=== PATIENT | male | born 1930 | race Caucasian/White ===

== ENCOUNTER 2017-01-28 15:59 | Inpatient (IN) | payer MEDICARE, BC ==
--- NOTE | ~2017-01-28 | CR72 ---
[facility] A Service of [facility] RADIOLOGY TEXT RESULTS PATIENT: TOMY PENA LOCATION: [facility] : 31 UNIT #: [id number] AGE: [address]: Matilde Sarkar MD SEX: M ORDER DR: [id number] [facility] [address] [place], [place] [address] [id number] I MR#: [id number] Acc #: [id number] NAME: TOMY PENA : 1930 SEX: M STUDY DATE/TIME: 01/31/2017 10:42 UNIT: [facility] ROOM: [facility] STUDY DESCRIPTION: CR Chest Single View Portable Attending Physician: Matilde Sarkar M.D. Ordering Physician: Ricco Barrow M.D. Primary Care Physician: Joby Sharma M.D. MEDICAL IMAGING REPORT This report is preliminary unless electronic signature is present EXAM Portable chest x-ray. HISTORY Fever, chills, short of air. Over 1 week. TECHNIQUE AP radiograph of the chest presented. COMPARISON 01/28/2017 FINDINGS Status post median sternotomy and CABG. Stable borderline cardiac enlargement. Descending thoracic aorta is moderately tortuous, unchanged. The lungs are well inflated. Slight elevation of the right hemidiaphragm is stable. Patchy densities in the right mid lung zone and right infrahilar region persist and may involve components of pneumonia and atelectasis. There are new patchy densities at the left lung base concerning for new focus of pneumonia given patient's symptoms. No dense airspace consolidation. No pleural effusion or pneumothorax. No suspicious nodule. Follow up to complete resolution of radiographic findings in lungs recommended. Healed granulomatous disease, unchanged. Dictated by... Brian Washburn M.D. THIS IS AN ELECTRONICALLY VERIFIED REPORT Brian Washburn M.D. at 02/01/2017 7:54 AM ROBERT/kirstin [facility] A Service of [facility] RADIOLOGY TEXT RESULTS PATIENT: TOMY PENA [facility] [id number] : [facility] UNIT #: [id number] AGE: [address]: Matilde Sarkar MD SEX: M ORDER DR: TD: 01/31/2017 12:51 JOB #: [id number] MEDICAL IMAGING REPORT COPY
--- NOTE | ~2017-01-28 | DS ---
Unit #: [id number] #: [id number] Patient: TOMY PENA [id number] [facility] [address]. [place], [place] [address] [id number] I MR#: [id number] NAME: TOMY PENA ROOM: 218 Age: 86 Sex: M Admission Date: 01/28/2017 : 1930 Discharge Date: 01/31/2017 Attending Physician: Matilde Sarkar M.D. Primary Care Physician: Joby Sharma M.D. DISCHARGE SUMMARY DIAGNOSES ON ADMISSION 1. Fever. 2. Right middle lobe pneumonia. DIAGNOSES ON DISCHARGE 1. Right lower lobe community-acquired pneumonia. 2. Chronic obstructive pulmonary disease. 3. Coronary artery disease, status post coronary artery bypass graft. 4. Valvular disease with aortic stenosis. 5. Hyperlipidemia. 6. Degenerative joint disease. CONSULTATION Dr. Barrow - Pulmonary. LABS AND PROCEDURES DONE The patient's CT scan of abdomen and pelvis revealed no acute findings in abdomen and pelvis. There was a moderate patchy infiltrate in posterior right lower lobe. Sputum culture and sensitivities revealed normal respiratory danae. Influenzae A and B were negative. The patient's creatinine is 0.8, sodium 139, potassium is 4.2. WBC is 10.1, hemoglobin is 11.0, platelet count is 203. HOSPITAL COURSE 86-year-old patient presented to [facility] with shortness of air. Details are as per admission H and P. Right lower lobe pneumonia: The patient was treated with IV antibiotics. The patient has responded well and is feeling good. The patient's chronic obstructive pulmonary disease remains stable and he was treated with Duo-Neb mini neb treatments. Today, patient is comfortable, not in any acute distress. Wants to go home. On physical examination, VITAL SIGNS reveal a temperature of 98.5, pulse is 70 per minute, respiratory rate is 18 per minute, blood pressure is 143/63. HEENT examination revealed no conjunctival congestion. Sclerae is not icteric. NECK is supple. Trachea is central. RESPIRATORY examination revealed breath sounds equal bilaterally. No wheezes or Unit #: [id number] #: [id number] Patient: TOMY PENA crackles. HEART is regular rate and rhythm. S1, S2. ABDOMEN is soft, nontender. Bowel sounds are present in all four quadrants. NEUROLOGICALLY, strength is 5 out of 5 bilaterally. Skin is warm and dry. RECOMMENDATIONS ON DISCHARGE 1. Condition is stable. 2. Activity as tolerated. MEDICATIONS 1. Albuterol mini neb treatment, two puffs q.4 hours p.r.n. 2. Symbicort inhalation, 160/4.5 inhalations b.i.d. 3. Tylenol 325 mg p.o. q.6 hours p.r.n. 4. Spiriva, one inhalation daily. 5. Claritin 10 mg p.o. daily. 6. Norvasc 10 mg p.o. daily. 7. Toprol XL 12.5 mg p.o. daily. 8. Eyedrops. 9. Pravachol 40 mg p.o. q. h.s. 10. Lisinopril 10 mg p.o. daily. 11. Enteric coated aspirin 81 mg p.o. daily. 12. Multivitamin, one tablet p.o. daily. 13. Vitamin B12 injection, 1 mg intramuscularly once a month. 14. Levaquin 500 mg p.o. daily for four days. FOLLOWUP The patient is advised to follow up with primary care physician in one week, have a CBC and BMP done, and follow up with Dr. Barrow as recommended. The plan was discussed in detail with patient who showed complete understanding. Dictated by... Yosef Cox/twin TD: 01/31/2017 12:06 JOB #: [id number] DISCHARGE SUMMARY X Matilde Sarkar MD X DISCHARGE SUMMARY
--- NOTE | ~2017-01-28 | CR63 ---
[facility] A Service of [facility] & [facility] RADIOLOGY TEXT RESULTS PATIENT: TOMY PENA LOCATION: [facility] 218-01 : 31 UNIT #: [id number] AGE: [address]: Matilde Sarkar MD SEX: M ORDER DR: [id number] [facility] [address] [place], [place] [address] [id number] I MR#: [id number] Acc #: [id number] NAME: TOMY PENA. : 1930 SEX: M STUDY DATE/TIME: 01/28/2017 13:38 UNIT: [facility] ROOM: 218 STUDY DESCRIPTION: CR Chest 2 View Attending Physician: Matilde Sarkar M.D. Ordering Physician: Brittany Schultz M.D. Primary Care Physician: Joby Sharma M.D. MEDICAL IMAGING REPORT This report is preliminary unless electronic signature is present EXAM PA and lateral chest DATE 01/28/2017 at 13:38 HISTORY Fever, chills and cough for 5 days. COMPARISON PA and lateral chest radiograph 08/07/2016. CT chest 10/23/2016. PA and lateral chest 05/09/2014. FINDINGS The mid to upper lung zone on the lateral view is obscured by the patient's arm, which is not well elevated. Airspace disease in the infrahilar right lower lobe favored to represent dense band-like atelectasis is not thought to be significantly changed since previous exam. There may be faint reticular infiltrate in the perihilar right midlung. Left lung remains clear. Minimal linear subsegmental atelectasis or scarring is present in the left lower lobe. Stable mild cardiac enlargement. CABG changes. Benign calcified granuloma in the left lower lobe. IMPRESSION 1. Suspected ill-defined infiltrate in the perihilar right midlung. More dense band-like opacity in the infrahilar right lower lobe is not thought to be significantly changed from prior, favored to represent band-like atelectasis or scarring. Minimal linear scarring or atelectasis remains within the left lower lobe. 2. Stable borderline cardiac enlargement with signs of prior CABG. [facility] A Service of [facility] & [facility] RADIOLOGY TEXT RESULTS PATIENT: TOMY PENA LOCATION: [facility] 218-01 : 31 UNIT #: [id number] AGE: [address]: Matilde Sarkar MD SEX: M ORDER DR: Dictated by... Maribeth Jara M.D. THIS IS AN ELECTRONICALLY VERIFIED REPORT Maribeth Jara M.D. at 01/28/2017 10:50 PM [facility]/elza TD: 01/28/2017 21:37 JOB #: [id number] MEDICAL IMAGING REPORT COPY
--- NOTE | ~2017-01-28 | HP ---
Unit #: [id number] #: [id number] Patient: TOMY PENA [id number] [facility] [address] [place], [place] [address] [id number] I MR#: [id number] NAME: TOMY PENA. ROOM: 218 Age: 86 Sex: M Admission Date: 01/28/2017 : 1930 Attending Physician: Matilde Sarkar M.D. Primary Care Physician: Joby Sharma M.D. HISTORY AND PHYSICAL DIAGNOSES ON ADMISSION Right pneumonia. HISTORY OF PRESENT ILLNESS An 86-year-old male presented to [facility] with fever. Details are as per admission H and P. As per patient he was in his usual state of health when yesterday evening he started to develop fever. Patient's states that [facility] and then afterward he developed fever with productive cough. She gave him Tylenol. Fever initially improved but again came back. As per the temperature was 101 degrees. Patient also had cough with yellowish green sputum. Patient complained of weakness. As patient's symptoms did not improve today she decided to bring him to the hospital. On questioning the patient states that before yesterday, on Saturday, he had some weakness and was more sleepy but he denies any shortness of air or chest pain. Patient stated that he had cataract surgery done last week and he is not able to see from his right eye. He has a followup appointment with Dr. Mcadams on this Saturday. Patient denies any rectal bleeding or blood in urine. There is no history of sore throat, sinus congestion or holland rash. Patient denies recent weight loss or loss of appetite. Rest of the review of systems was negative. PAST MEDICAL HISTORY 1. COPD. 2. Hypertension. 3. Coronary artery disease, status post CABG x3. 4. Valvular heart disease with aortic stenosis. 5. Degenerative joint disease. 6. Diverticulosis. 7. Back surgery in 1977. 8. Knee surgery. 9. History of spontaneous pneumothorax requiring a chest tube. 10. Coronary artery bypass grafting x3. FAMILY HISTORY Family history is positive for coronary artery disease. SOCIAL HISTORY Patient is . He quit smoking 30 years ago, denies drinking or use of illicit drugs. ALLERGIES Unit #: [id number] #: [id number] Patient: TOMY PENA. HOME MEDICATION Patient currently does not have a list of his home medications with him but in July 2016 he was discharged on Protonix, Norvasc, Lopressor, Pravachol, lisinopril, aspirin, loratadine but latest med list is not with patent right now. PHYSICAL EXAMINATION GENERAL: Patient is lying in bed. He is complaining of weakness. VITAL SIGNS: Reveal a temperature of 98.5, pulse is 72 per minute, respiratory rate is 18 per minutes, blood pressure is 148/80, pulse ox was 94% on room air. HEENT: Examination revealed no conjunctival congestion. Sclerae are nonicteric. NECK: Neck is supple. Trachea is central. RESPIRATORY: Examination revealed decreased breath sounds bilaterally. There are right-sided crackles present. HEART: Heart is regular rate and rhythm, S1, S2. ABDOMEN: Abdomen is soft, nontender. Bowel sounds are present. EXTREMITIES: Reveal trace pedal edema. PSYCHIATRIC: The patient is alert to person place and time. NEUROLOGIC: Strength is 4+ bilaterally. SKIN: Warm and dry. DIAGNOSTIC STUDIES LABORATORY: The patient's CBC revealed a WBC of 19.3, hemoglobin is 12.3, platelet count is 224. BMP is currently pending. Influenza A and B screen was negative. IMAGING: Chest x-ray revealed right middle lobe infiltrate. ASSESSMENT AND PLAN An 86-year-old male presented to [facility] with fever. Details are as per admission H and P. 1. Right middle lobe pneumonia: Patient is already receiving Levaquin therefore we will continue patient on our Levaquin treatment. 2. Chronic obstructive pulmonary disease: I will add DuoNeb mini-neb treatment. The patient is not actively wheezing and I will hold on Solu-Medrol for now. 3. History of coronary artery disease, status post coronary artery bypass graft: Will continue (1) . 4. Hypertension: Will continue home medications. 5. Hyperlipidemia: Will continue home medication. 6. Gastroesophageal reflux disease: Will continue Protonix. The plan was discussed in detail with patient and and they showed complete understanding. Dictated by Yosef Cox Unit #: [id number] #: [id number] Patient: TOMY PENA TD: 01/28/2017 22:21 JOB #: [id number] HISTORY AND PHYSICAL X Matilde Sarkar MD X HISTORY AND PHYSICAL
--- NOTE | ~2017-01-28 | CO ---
Unit #: [id number] #: [id number] Patient: TOMY PENA [id number] [address] [place], [place] [address] [id number] I MR#: [id number] NAME: TOMY PENA ROOM: 218 Age: 86 Sex: M Admission Date: 01/28/2017 : 1930 Attending Physician: Matilde Sarkar M.D. Primary Care Physician: Joby Sharma M.D. Consultation Date: 01/29/2017 CONSULTATION REPORT HISTORY OF PRESENT ILLNESS An 86-year-old white male with a history of some COPD, hypertension, coronary artery disease, valvular heart disease with aortic stenosis, who presents after awakening Saturday morning with fever, weakness, and cough. He gradually worsened and presented to the emergency room. There he was noted to have a right mid lung field infiltrate. CT scan of the abdomen and pelvis was done also which revealed a right lower lobe infiltrate and some segmental atelectasis in left lung base. No significant abdominal abnormality was identified. He has been admitted. We were asked to see. I see him in my pulmonary office, he came in for evaluation of his COPD and see what medicines he need to be on. He has outpatient pulmonary function test scheduled spirometry in the office, though did show no obstruction. PAST MEDICAL HISTORY Significant for COPD, hypertension, coronary artery disease status post CABG, valvular heart disease with aortic stenosis, DJD, diverticulosis. He has had back surgery, knee surgery, history of spontaneous pneumothorax with chest tube, and coronary bypass grafting x3. ALLERGIES He has allergies to Keflex. HOME MEDICATIONS Listed include lisinopril, cyanocobalamin, Claritin, pravastatin, Tylenol, Norvasc, aspirin, Nasalide, multivitamins, Toprol-XL, [place], Symbicort, Spiriva, ProAir, artificial tears, and Timoptic. SOCIAL HISTORY . Quit smoking 30 years ago. Denies alcohol or drug abuse. FAMILY HISTORY Positive for coronary artery disease. REVIEW OF SYSTEMS CONSTITUTIONAL: Has had fever and chills. HEENT: No rhinorrhea or nasal congestion. PULMONARY: As noted. CARDIAC: No chest pain or palpitations. GI: Has had some nausea. No vomiting. : No hematuria or dysuria. ENDOCRINE: No polyuria or polydipsia. HEMATOLOGIC: No easy bruising or bleeding. SKIN: No rash. Unit #: [id number] #: [id number] Patient: TOMY PENA NEURO: No unilateral weakness or numbness. Other 10-point system negative. PHYSICAL EXAMINATION GENERAL: White male, in no distress, sitting up in chair. VITAL SIGNS: Blood pressure is 103/52, pulse is 70, respiratory rate is 17, afebrile, O2 saturation 94%. HEENT: Normocephalic and atraumatic. Pupils are equal, round, reactive. He is status post cataract surgery in right and left. Oral cavity, Mallampati III. Mucous membranes are moist. NECK: Supple. Trachea midline. No cervical or supraclavicular lymphadenopathy. LUNGS: Reveal some rales in the right base. CARDIAC: Regular rate and rhythm. Could not appreciate murmur, rub, or gallop. ABDOMEN: Nontender. Bowel sounds present. No hepatosplenomegaly. EXTREMITIES: Without clubbing, cyanosis, or edema. NEUROLOGIC: Awake, alert, moves all extremities symmetrically. SKIN: Warm and dry. Psychiatric: Affect calm. DIAGNOSTIC STUDIES IMAGING STUDIES: Chest x-ray and CT scan as noted, personally reviewed. LABORATORY RESULTS: BMP reviewed glucose 179. Lactic acid 1.1. Procalcitonin not done. White count 19,300 on admission, hematocrit 38.1, and platelet count normal. IMPRESSION 1. Right lower lobe community-acquired pneumonia. 2. Chronic obstructive pulmonary disease. 3. Hypertension. 4. Coronary artery disease. 5. Valvular heart disease with aortic stenosis. PLAN Broad-spectrum antibiotics for community-acquired pneumonia. We will rule out possibility of aspiration. With speech evaluation and possibly video swallow and continue pulmonary inhalers. He is on O2 to maintain adequate saturation. He is scheduled to have outpatient pulmonary function test to see if he does have significant COPD or not. We will make recommendations as to medications at that point. Dictated by... Ricco Barrow M.D. DALJIT/odette TD: 01/29/2017 22:31 JOB #: [id number] Unit #: [id number] #: [id number] Patient: TOMY PENA CONSULTATION REPORT X Ricco Barrow MD CONSULTATION REPORT
--- NOTE | ~2017-01-28 | CT2 ---
[facility] A Service of [facility] RADIOLOGY TEXT RESULTS PATIENT: TOMY PENA LOCATION: [facility] 218 : 31 UNIT #: [id number] AGE: [address]: Matilde Sarkar MD SEX: M ORDER DR: [id number] [facility] [address] [place], [place] [address] [id number] I MR#: [id number] Acc #: [id number] NAME: TOMY PENA. : 1930 SEX: M STUDY DATE/TIME: 01/28/2017 17:43 UNIT: [facility] ROOM: 218 STUDY DESCRIPTION: CT Abd and Pelv W Cont Attending Physician: Matilde Sarkar M.D. Ordering Physician: Arpita Arzate M.D. Primary Care Physician: Joby Sharma M.D. MEDICAL IMAGING REPORT This report is preliminary unless electronic signature is present EXAM CT abdomen and pelvis with IV contrast HISTORY Cough, fever, chills and diffuse abdomen pain today. TECHNIQUE This CT examination was performed with one or more of the following radiation dose reduction techniques: automatic exposure control, adjustment of mA and/or kV according to patient size, and iterative reconstruction. FINDINGS CT abdomen and pelvis was performed with IV contrast. CT ABDOMEN: Evaluation of the lung bases demonstrates moderate patchy infiltrate in the posterior right lower lobe, which is nonspecific but could be due to pneumonia in the appropriate clinical context. There is probably additional atelectasis in the posterior right lower lobe and there is mild subsegmental atelectasis in the posterior left lower lobe and in the inferior right middle lobe. Dilatation of the partly visualized proximal ascending thoracic aorta measuring 4.3 cm and the mid descending thoracic aorta measuring 3.7 cm. Multiple incidental bilateral renal cysts. Multifocal parenchymal scarring in the upper and lower left kidney. Generalized bilateral renal parenchymal atrophy. Small nonobstructing stones in the mid and upper right kidney and 1 small nonobstructing stone in the mid-left kidney, measuring up to approximately 3 mm bilaterally. Mild fatty infiltration of the liver. Tiny gallstones. No gallbladder distension or biliary dilatation. The spleen, and adrenal glands are normal. There is a 1.8 cm simple cyst in the tip of the pancreatic tail which is unchanged compared to prior studies 07/28/2016 and 05/04/2014, and is therefore likely a benign simple pancreatic cyst. [facility] A Service of [facility] RADIOLOGY TEXT RESULTS PATIENT: TOMY PENA LOCATION: [place] [address] : 31 UNIT #: [id number] AGE: [address]: Matilde Sarkar MD SEX: M ORDER DR: No bowel dilatation. No ascites. No inflammatory stranding. Mild ectasia of the infrarenal abdominal aorta. CT PELVIS: Moderately severe prostatic enlargement. Small left inguinal hernia containing fat. Mild sigmoid diverticulosis. No diverticulitis. No free fluid. Normal appendix. IMPRESSION 1. No acute findings in the abdomen or pelvis. 2. Moderate patchy infiltrate in the posterior right lower lobe in the right lung base. There may also be associated atelectasis. This is nonspecific but considerations include pneumonia. 3. Additional mild subsegmental atelectasis in both lung bases. 4. Dilatation of the ascending thoracic aorta measuring 4.3 cm and the descending thoracic aorta measuring 3.7 cm. 5. Small gallstones but no gallbladder distension or biliary dilatation. 6. Stable simple cyst in the tip of the pancreatic tail compared to prior CTs, suggesting an incidental benign simple pancreatic cyst. 7. Moderately severe prostatic enlargement. Small left inguinal hernia containing fat. Dictated by... Antoine Fowler M.D. THIS IS AN ELECTRONICALLY VERIFIED REPORT Antoine Fowler M.D. at 01/29/2017 3:31 PM ANUJ/dionicio TD: 01/29/2017 08:36 JOB #: [id number] MEDICAL IMAGING REPORT COPY
[2017-01-28 13:32] LABS: INFLUENZA A NEG (NEG); INFLUENZA B NEG (NEG)
[~2017-01-28 15:59] MED LIST: ACETAMINOPHEN650 M3 PO; AMLODIPINE BESY10 MG PO; ARTHRITIS PAIN650 M3 PO; ASPIRIN EC81 M1 PO; ASPIRIN81 MG PO; CLARITIN10 M2 PO; CLARITIN10 M3 PO; COMBIVENT MININEB INH; CYANOCOBAL1000 MCG/M INJ; FLOMAX0.4 M1 PO; FLUNISOLIDE25 ML NS; HCTZ PO; LEVAQUIN750 M1 PO; LEVAQUIN750 MG PO; LISINOPRIL10 MG PO; METAMUCIL SMOOT1 PKT PO; METOPROLOL SUCC25 MG PO; METOPROLOL TAR25 MG DOB; MULTI VITAMIN1 EACH PO; MULTI-DAY1 TAB PO; NAPROXEN PO; NASAL MOIST45 ML NS; NASALIDE INHALE25 ML; NORVASC10 MG PO; OCEAN45 ML; PERCOCET5/325 PO; PRAVACHOL20 MG PO; PRAVASTATIN SOD40 MG PO; PROSTATE MED; SALINE NOSE SPR45 M1; SALINE60 M1; SPECTAZOLE15 G1 EXT; SYMBICORT INH; TOPROL XL PO; TYL325 PO; TYLENOL325 M1 PO; VITAMIN B-1000 MCG/1 IJ; VITAMIN B-1000 MCG/1 INJ
[2017-01-28 16:21] LABS: BASOPHIL# 0.1 X10e3 (0-0.3); BASOPHIL% 0.6 % (0-2.5); EOSINOPHIL% 0.2 % (0.0-7.0); HEMATOCRIT 38.1 % (38.0-50.0); HEMOGLOBIN 12.3 gm/dL (13.0-16.0); LYMPHOCYTE# 0.8 X10e3 (1.0-3.5); LYMPHOCYTE% 4.3 % (17.0-45.0); MEAN CELL VOLUME 90.8 FL (83-96); MEAN CORPUSCULAR HEMOGLOBIN 29.3 PG (28-34); MEAN CORPUSCULAR HGB CONC 32.2 g/dL (30-36); MEAN PLATELET VOLUME 9.4 FL (6.5-11.5); MONOCYTE# 2.6 X10e3 (0-1.0); MONOCYTE% 13.5 % (3.0-12.0); NEUTROPHIL# 15.8 X10e3 (1.5-7.1); NEUTROPHIL% 81.4 % (40-75); PLATELET COUNT 225 X10e3 (140-420); RED BLOOD COUNT 4.19 X10e (3.90-5.60); RED CELL DISTRIBUTION WIDTH 15.3 % (11.0-15.5); WHITE BLOOD COUNT 19.3 X10e3 (4.0-10.5)
[2017-01-28 16:22] LABS: DIFF IND YES
[2017-01-28 16:34] LABS: ALBUMIN SERUM 3.7 g/dL (3.5-5.0); ALKALINE PHOSPHATASE 82 U/L (32-92); ALT (SGPT) 17 U/L (10-40); AST (SGOT) 17 U/L (10-42); BILIRUBIN, DIRECT 0.4 mg/dL (0.0-0.2); BILIRUBIN,INDIRECT 1.1 mg/dL (0.0-0.9); BILIRUBIN,TOTAL 1.5 mg/dL (0.2-2.0); BLOOD UREA NITROGEN 21 mg/dL (9-23); BUN/CREATININE RATIO 23.33; CALCIUM SERUM 8.7 mg/dL (8.4-10.2); CARBON DIOXIDE 24 mmol/L (22-31); CHLORIDE 109 mmol/L (100-111); CREATININE SERUM 0.9 mg/dL (0.6-1.4); GLOM FILT RATE Estimated ABOVE60 mL/min (>60); GLUCOSE FASTING 197 mg/dL (70-110); POTASSIUM 3.8 mmol/L (3.5-5.1); PROTEIN TOTAL SERUM 7.2 g/dL (6.0-8.3); SODIUM 139 mmol/L (135-145)
[2017-01-28 16:43] LABS: INR 1.1; PARTIAL THROMBOPLASTIN TIME 28.3 SECONDS (23.5-31.3)
[2017-01-28 16:47] LABS: PLATELET ESTIMATE NORMAL (NORMAL)
[2017-01-28 16:48] LABS: RBC NORMAL YES
[2017-01-28 17:32] LABS: URINE SOURCE CLEAN CATCH
[2017-01-28 17:38] LABS: URINE APPEARANCE CLEAR; URINE BLOOD NEG (NEG); URINE COLOR DK YELLOW; URINE GLUCOSE 250 MG/DL (NEG); URINE KETONE TRACE (NEG); URINE LEUKOCYTE ESTERASE TRACE (NEG); URINE NITRATE NEG (NEG); URINE PROTEIN 1+ (NEG); URINE SPECIFIC GRAVITY 1.037 (1.003-1.035)
[2017-01-28 17:41] LABS: URBCS1 AUWI 0-2 /[HPF] (0-2); URINE BACTERIA AUWI NEG (NEGATIVE); URINE SQUAMOUS EPITHELIAL CELL NONE SEEN /[HPF]; UWBCS1 AUWI 0-2 (0-5)
[2017-01-28 17:44] LABS: URINE BILIRUBIN NEG (NEG)
[2017-01-28 17:45] LABS: CULTURE INDICATED? NO
[2017-01-28] MEDS ORDERED: SPIRIVA18 MCG INH (19:13)
[2017-01-28] MEDS ORDERED: ARTIFICIAL TEAR15 M9 OU ×2 (19:14→19:17)
[2017-01-28] MEDS ORDERED: PROAIR RESPICL90 MCG INH (19:14)
[2017-01-28] MEDS ORDERED: TIMOPTIC 0.5% OP5 M1 OU (19:18)
[2017-01-28] MEDS ORDERED: SYMBICORT INH (22:46)
[2017-01-28] MEDS ORDERED: LISINOPRIL10 MG PO (22:46)
[2017-01-28] MEDS ORDERED: METOPROLOL TAR25 MG PO (22:48)
[2017-01-28] MEDS ORDERED: CLARITIN10 M2 PO (22:48)
[2017-01-28] MEDS ORDERED: PRAVASTATIN SOD40 MG PO (22:48)
[2017-01-28] MEDS ORDERED: TYLENOL325 M1 PO (22:49)
[2017-01-28] MEDS ORDERED: NORVASC10 MG PO (22:49)
[2017-01-28] MEDS ORDERED: ASPIRIN81 MG PO (22:50)
[2017-01-28] MEDS ORDERED: MULTI VITAMIN1 EACH PO (22:50)
[2017-01-28] MEDS ORDERED: CYANOCOBAL1000 MCG/M IM (22:52)
[2017-01-28] MEDS ORDERED: NASALIDE INHALE25 ML (22:53)
[2017-01-28] MEDS ORDERED: OCEAN45 ML (22:58)
[2017-01-29 05:13] LABS: BASOPHIL% 0.2 % (0-2.5); EOSINOPHIL# 0.1 X10e3 (0-0.7); EOSINOPHIL% 0.5 % (0.0-7.0); HEMATOCRIT 34.6 % (38.0-50.0); HEMOGLOBIN 11.4 gm/dL (13.0-16.0); LYMPHOCYTE# 1.2 X10e3 (1.0-3.5); LYMPHOCYTE% 8.9 % (17.0-45.0); MEAN CELL VOLUME 91.3 FL (83-96); MEAN CORPUSCULAR HEMOGLOBIN 29.9 PG (28-34); MEAN CORPUSCULAR HGB CONC 32.8 g/dL (30-36); MEAN PLATELET VOLUME 9.6 FL (6.5-11.5); MONOCYTE% 14.3 % (3.0-12.0); NEUTROPHIL# 10.6 X10e3 (1.5-7.1); NEUTROPHIL% 76.1 % (40-75); PLATELET COUNT 193 X10e3 (140-420); RED BLOOD COUNT 3.79 X10e (3.90-5.60); RED CELL DISTRIBUTION WIDTH 15.1 % (11.0-15.5)
[2017-01-29 05:17] LABS: DIFF IND NO
[2017-01-29 05:36] LABS: BLOOD UREA NITROGEN 19 mg/dL (9-23); BUN/CREATININE RATIO 27.14; CALCIUM SERUM 8.4 mg/dL (8.4-10.2); CARBON DIOXIDE 24 mmol/L (22-31); CHLORIDE 106 mmol/L (100-111); CREATININE SERUM 0.7 mg/dL (0.6-1.4); GLOM FILT RATE Estimated ABOVE60 mL/min (>60); GLUCOSE FASTING 176 mg/dL (70-110); POTASSIUM 3.8 mmol/L (3.5-5.1); SODIUM 137 mmol/L (135-145)
[2017-01-30 07:03] LABS: HEMATOCRIT 33.3 % (38.0-50.0); MEAN CELL VOLUME 91.2 FL (83-96); MEAN CORPUSCULAR HEMOGLOBIN 30.2 PG (28-34); MEAN CORPUSCULAR HGB CONC 33.1 g/dL (30-36); MEAN PLATELET VOLUME 9.9 FL (6.5-11.5); RED BLOOD COUNT 3.65 X10e (3.90-5.60); RED CELL DISTRIBUTION WIDTH 15.2 % (11.0-15.5); WHITE BLOOD COUNT 10.1 X10e3 (4.0-10.5)
[2017-01-30 07:45] LABS: BLOOD UREA NITROGEN 18 mg/dL (9-23); CALCIUM SERUM 8.8 mg/dL (8.4-10.2); CARBON DIOXIDE 23 mmol/L (22-31); CHLORIDE 106 mmol/L (100-111); CREATININE SERUM 0.8 mg/dL (0.6-1.4); GLOM FILT RATE Estimated ABOVE60 mL/min (>60); GLUCOSE FASTING 148 mg/dL (70-110); POTASSIUM 4.2 mmol/L (3.5-5.1); SODIUM 139 mmol/L (135-145)
[2017-01-31] MEDS ORDERED: ARTIFICIAL TEAR1 DRP OU (12:49)
[2017-01-31] MEDS ORDERED: LEVAQUIN PO (12:50)
== END 2017-01-31 14:33 | disposition home health service (06) | DRG 190 ==
LOC: CED 15:59 → C2A 16:40
PROVIDERS: Emergency Medicine; Internal Medicine; Student in an Organized Health Care Education/Training Program
DX: J44.0 Chronic obstructive pulmonary disease with (acute) lower respiratory infection (principal); J18.9 Pneumonia, unspecified organism; J44.9 Chronic obstructive pulmonary disease, unspecified; I35.0 Nonrheumatic aortic (valve) stenosis; R13.13 Dysphagia, pharyngeal phase; I25.10 Atherosclerotic heart disease of native coronary artery without angina pectoris; Z95.1 Presence of aortocoronary bypass graft; E78.5 Hyperlipidemia, unspecified; M19.90 Unspecified osteoarthritis, unspecified site; Z82.49 Family history of ischemic heart disease and other diseases of the circulatory system; Z87.891 Personal history of nicotine dependence; K21.9 Gastro-esophageal reflux disease without esophagitis; Z98.42 Cataract extraction status, left eye; Z79.82 Long term (current) use of aspirin
CPT/HCPCS: 71010; 71020; 74177; 74230; 80048; 80076; 81003; 83605; 85025; 85027; 85610; 85730; 87070; 87205; 87804; 92526; 92610; 92611; 94640; 94664; 94760; 96361; 96365; 96375; 97110; 97116; 97162; 97166; 97535; 99285; C9113; G8978-GP; G8979-GP; G8987-GO; G8988-GO; G8996-GN; G8997-GN; G8998-GN; J1650; J1956; J2270; J2405; Q9967

== ENCOUNTER → 2017-03-27 | Outpatient (CLI) | payer MEDICARE, BC ==
[~2017-03-27] MED LIST changes: +ARTIFICIAL TEAR1 DRP OU; +ARTIFICIAL TEAR15 M9 OU; +CYANOCOBAL1000 MCG/M IM; +LEVAQUIN PO; +METOPROLOL TAR25 MG PO; +PROAIR RESPICL90 MCG INH; +SPIRIVA18 MCG INH; +TIMOPTIC 0.5% OP5 M1 OU
--- NOTE | ~2017-03-27 | CT57 ---
[facility] A Service of [facility] RADIOLOGY TEXT RESULTS PATIENT: TOMY PENA LOCATION: [facility] : 31 UNIT #: [id number] AGE: [address]: Ricco Barrow MD SEX: M ORDER DR: [id number] [facility] [address] [place], [place] [address] [id number] O MR#: [id number] [facility] #: [id number] NAME: TOMY PENA : 1930 SEX: M STUDY DATE/TIME: 03/27/2017 14:15 UNIT: [facility] ROOM: STUDY DESCRIPTION: CT Chest Wo Cont Attending Physician: Ricco Barrow M.D. Referring Physician: Ricco Barrow M.D. Ordering Physician: Ricco Barrow M.D. Primary Care Physician: Joby Sharma M.D. MEDICAL IMAGING REPORT This report is preliminary unless electronic signature is present EXAM CT chest without contrast INDICATION Pulmonary fibrosis. Followup. No current complaints. PROCEDURE Unenhanced CT of the chest utilizing high-resolution protocol. This CT exam was performed with one or more of the following radiation dose reduction techniques: automatic exposure control, adjustment of mA and/or kV according to patient size, and iterative reconstruction. COMPARISON 08/04/2016 FINDINGS There is stable biapical scarring. Previously demonstrated opacity in the right upper lobe has resolved. There is stable scarring or atelectasis in the right lower lobe. No new dense consolidation or suspicious nodule. No evidence for significant interstitial thickening, honeycombing. There is moderate diffuse bronchiectasis. No significant air trapping. Coronary artery calcification. Ascending thoracic aorta measures up to 4.1 cm and is similar to the previous study. Previous CABG. No adenopathy. No acute findings in the included upper abdomen. Renal cysts and nonobstructing calculi in the right are similar. No aggressive appearing bone lesion. IMPRESSION 1. No acute findings. Previously demonstrated opacity in the right [facility] A Service of [facility] RADIOLOGY TEXT RESULTS PATIENT: TOMY PENA LOCATION: [facility] : 31 UNIT #: [id number] AGE: [address]: Ricco Barrow MD SEX: M ORDER DR: upper lobe has improved. 2. Areas of biapical scarring and scarring in the right lower lobe are stable. 3. There is no significant evidence for interstitial lung disease or air trapping. 4. There is moderate diffuse bronchiectasis. 5. Other findings are detailed above and very similar to the prior. Dictated by... Anuel Espana M.D. THIS IS AN ELECTRONICALLY VERIFIED REPORT Anuel Espana M.D. at 03/29/2017 7:06 AM MAXIMINO/therese TD: 03/28/2017 08:41 JOB #: [id number] MEDICAL IMAGING REPORT Page 1 of 1 COPY
== END | disposition home or self-care (01) ==
LOC: CCAT 13:19
DX: J84.10 Pulmonary fibrosis, unspecified (principal); J98.4 Other disorders of lung; J47.9 Bronchiectasis, uncomplicated; I25.10 Atherosclerotic heart disease of native coronary artery without angina pectoris; N28.1 Cyst of kidney, acquired; N20.0 Calculus of kidney; R91.8 Other nonspecific abnormal finding of lung field; Z95.1 Presence of aortocoronary bypass graft
CPT/HCPCS: 71250

== ENCOUNTER → 2017-07-12 | Outpatient (CLI) | payer MEDICARE, BC ==
--- NOTE | ~2017-07-12 | MR2 ---
[facility] A Service of [facility] RADIOLOGY TEXT RESULTS PATIENT: TOMY PENA [facility] UNIT #: [id number] AGE: [address]: Hans Ramirez MD SEX: M ORDER DR: [id number] [facility] [address] [place], [place] [address] [id number] MR#: [id number] Acc #: [id number] NAME: TOMY PENA : 1930 SEX: M STUDY DATE/TIME: 07/12/2017 15:26 UNIT: [facility] ROOM: STUDY DESCRIPTION: MR Abdomen WWo Cont Attending Physician: Hans Ramirez M.D. Referring Physician: Hans Ramirez M.D. Ordering Physician: Hans Ramirez M.D. Primary Care Physician: Joby Sharma M.D. MRI CENTER REPORT This report is preliminary unless electronic signature is present. EXAM MRI abdomen without and with contrast, 07/12/2017. HISTORY Pancreatic cyst found 2 years ago. No documented current complaints. Physician's order states abnormal CT abdomen, pancreatic cyst. COMPARISON CT abdomen and pelvis with contrast 01/28/2017. MRI of the abdomen without and with contrast 05/21/2016, 11/01/2015. CT chest and abdomen without contrast 10/25/2015. PROCEDURE Multiplanar, multisequence imaging was obtained of the without and with contrast. Dynamic postcontrast imaging was performed. 16 mL of MultiHance contrast was administered intravenously for the exam. FINDINGS 1.7-cm simple cyst is located in the pancreatic tail. When measured in a comparable fashion, it is unchanged from 11/01/2015 and is in keeping with a benign finding. A cluster of cysts within the pancreatic head is again seen; the cysts vary in size between 5-6 mm. These appear stable since 11/01/2015, as well. A tiny cyst is demonstrated anteriorly within the mid pancreatic body, measuring 5 mm. No suspicious enhancing pancreatic masses are identified. No peripancreatic inflammatory change is seen. No abnormal pancreatic ductal dilation. There is mild generalized pancreatic parenchymal atrophy. The liver demonstrates normal enhancement. No focal suspicious enhancing liver lesions are identified. The spleen and adrenal glands are normal. [facility] A Service of [facility] RADIOLOGY TEXT RESULTS PATIENT: TOMY PENA [facility] [birth year] UNIT #: [id number] AGE: [address]: Hans Ramirez MD SEX: M ORDER DR: Numerous bilateral renal cysts are present. No suspicious enhancing renal mass is evident. 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 The immediate infrarenal abdominal aorta is aneurysmal up to 3 cm, unchanged. Mild irregular mural plaquing is seen within the imaged abdominal aorta. Small quantity of layering gallstones present without pericholecystic inflammation. No abnormal biliary ductal dilation is seen. Spleen and adrenal glands are normal. No pathologic adenopathy is identified. Median sternotomy changes are present. IMPRESSION 1. Benign simple cyst within the pancreatic tail is a stable finding, compared to the more remote MRI of the abdomen of 11/01/2015. No further surveillance is warranted with respect to this finding. 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 2. Small cluster of microcyst is redemonstrated within the pancreatic head, varying in size between 5-6 mm. These findings are also thought to be stable since October 2015, suggesting a benign etiology. Another tiny cyst is seen within the mid pancreatic body, unchanged. 3. There are no suspicious enhancing pancreatic lesions. 4. Mild generalized pancreatic atrophy. 5. Multiple bilateral renal cysts. 6. Uncomplicated cholelithiasis. 7. 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 Borderline aneurysmal dilation of the infrarenal abdominal aorta to 3 cm. 8. Mild right basilar atelectasis or infiltrate, not included in the body of the report. 9. Median sternotomy changes. Dictated by... Maribeth Jara M.D. THIS IS AN ELECTRONICALLY VERIFIED REPORT Maribeth Jara M.D. at 07/18/2017 8:52 AM MONICA/jessee TD: 07/15/2017 15:20 JOB #: [id number] MRI CENTER REPORT [facility]. [facility] A Service of [facility] RADIOLOGY TEXT RESULTS PATIENT: TOMY PENA LOCATION: [facility] : 32 UNIT #: [id number] AGE: [address]: Hans Ramirez MD SEX: M ORDER DR: Page 1 of 1 COPY
[2017-07-12 15:31] LABS: POC - CREATININE 0.83 mg/dL (0.64-1.27); POC - GFR >60.0 mL/min (>60)
== END | disposition home or self-care (01) ==
LOC: CMRI 14:28
PROVIDERS: Internal Medicine Gastroenterology
DX: K86.2 Cyst of pancreas (principal); R93.5 Abnormal findings on diagnostic imaging of other abdominal regions, including retroperitoneum; K86.89 Other specified diseases of pancreas; K80.20 Calculus of gallbladder without cholecystitis without obstruction; I71.2 Thoracic aortic aneurysm, without rupture
CPT/HCPCS: 74183; 82565; A9577